=== PATIENT | male | born 1980 | race Caucasian/White ===

== ENCOUNTER 2016-10-18 22:47 | Emergency (ER) | payer OTHER ==
[2016-10-19 01:45] LABS: HEMOGLOBIN 14.4 gm/dl (14.0-17.5); RED BLOOD COUNT 4.75 M/UL (4.20-5.50)
[2016-10-19 02:15] LABS: BUN/CREATININE RATIO 12 (0-10)
== END 2016-10-19 02:44 | disposition home or self-care (01) ==
LOC: ER1 22:47
PROVIDERS: Family Medicine
DX: R07.9 Chest pain, unspecified (principal); F17.200 Nicotine dependence, unspecified, uncomplicated; Z79.82 Long term (current) use of aspirin; Z79.899 Other long term (current) drug therapy
CPT/HCPCS: 36415; 71010; 80053; 82550; 82553; 83874; 84484; 85025; 93005; 99285

== ENCOUNTER 2016-11-24 17:13 | Emergency (ER) | payer OTHER | END 2016-11-24 19:40 | disposition left against medical advice (07) | LOC: ER1 17:13 | DX: Z53.21 Procedure and treatment not carried out due to patient leaving prior to being seen by health care provider (principal) ==

== ENCOUNTER 2016-12-23 00:58 | Emergency (ER) | payer OTHER | END 2016-12-23 03:30 | disposition home or self-care (01) | LOC: ER1 00:58 | DX: Z53.21 Procedure and treatment not carried out due to patient leaving prior to being seen by health care provider (principal) | CPT/HCPCS: 93005 ==